=== PATIENT | male | born 1960 | race Caucasian/White ===

== ENCOUNTER → 2017-01-04 11:25 | Outpatient (CLI) | payer OTHER | END | disposition home or self-care (01) | LOC: D.CT 11:25 | DX: R10.9 Unspecified abdominal pain (principal) ==

== ENCOUNTER 2018-11-28 06:32 | Day surgery (SDC) | payer OTHER ==
[~2018-11-28] VITALS: Ht 175.3 cm; Wt 99.8 kg
[~2018-11-28 06:32] MED LIST: ARMOUR THYROID240 MG PO; COZAAR100 MG PO
[2018-11-28] MEDS ORDERED: PEPCID AC20 MG PO (08:09)
--- NOTE | 2018-11-28 08:09 | NUR ---
0897 DR. CARVER IS REQUESTING IV PEPCID DUE TO SEVERE GERD. 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
[2018-11-28 08:25] VITALS: BP 121/70; Ht 175.3 cm; Wt 99.8 kg
--- NOTE | 2018-11-28 09:31 | NUR ---
PATIENT LATE TO HOLDING FROM OUTPATIENT DUE TO STAFFING ISSUES IN OUTPATIENTS, 49 MINUTES DELAY, MARISABEL.
--- NOTE | 2018-11-28 13:29 | NUR ---
1318 IV DC'D. PRESSURE HELD TO STOP BLEEDING. BANDAID APPLIED.
--- NOTE | 2018-11-29 17:25 | OP ---
PATIENT NAME: KALPESH CARVER MEDICAL RECORD: [id number] :62 LOCATION:[facility] ADMISSION DATE: SURGEON: SRIKANTH TAFOYA MD DATE OF OPERATION: 11/28/2018 PREOPERATIVE DIAGNOSES: 1. Anal fissure. 2. Intractably symptomatic external hemorrhoids. POSTOPERATIVE DIAGNOSES: 1. Anal fissure. 2. Intractably symptomatic external hemorrhoids. 3. A mild degree of anal stenosis. PROCEDURE: 1. Anal evaluation under anesthesia with a single column hemorrhoidectomy at 7 o'clock. 2. External hemorrhoidectomy at 11 o'clock. 3. Lateral internal sphincterotomy. SURGEON: Srikanth Tafoya MD MATURITY CHECKER: None. BLOOD LOSS: 50 cc. ANESTHESIA: General. COMPLICATIONS: None. The risks, possible complications and alternatives to the procedure were explained to the patient. He elects to proceed. The patient was conveyed to the operating room electively on 10/31/2018. General anesthesia was induced by the anesthesia staff. The patient was placed in the lithotomy position. The buttocks were taped laterally. The anus and perineum were sterilely prepped and draped. I dilated the anus laterally to 2 fingers. There was some degree of anal stenosis likely from his prior operation. U-shaped anal retractors were placed. The largest hemorrhoid was at 7 o'clock. Hemostats were placed on a hemorrhoid. Utilizing the Harmonic scalpel, I excised the hemorrhoid with care paid not injure the underlying sphincteric muscles. Submucosal flaps were created sharply. I was able to elevate the superior flap and was able to visualize the internal and external sphincters. I performed about 3/4 lateral internal sphincterotomy at the 9 o'clock position. The hemorrhoidectomy defect was then closed with a running locking 3-0 Vicryl suture for the anal mucosa and then I ran this out on to the anoderm in a running intracuticular fashion. I reinforced the suture line with multiple interrupted horizontal mattress 3-0 Vicryl sutures for the anoderm as well as interrupted 3-0 Vicryls in a horizontal mattress fashion for the anal suture line. I identified an enlarged external hemorrhoid at the 11 o'clock position. This was grasped with hemostat and was excised utilizing the Harmonic scalpel. The defect was closed with interrupted intracuticular 3-0 Vicryls as well as multiple interrupted 3-0 Vicryl Rapide sutures in a horizontal mattress fashion. OPERATIVE REPORT [id number] KALPESH CARVER I then examined the anus again with the U-shaped anal retractors. I was satisfied with the operative result. Gelfoam was applied within the anus and lower rectum. A combination of steroid and Marcaine were used to infiltrate the perianal tissues and then a topical anesthetic cream was applied to the external hemorrhoids. The patient was then extubated and conveyed to post-anesthesia care unit where he was in stable condition. He will be dismissed home on [place] as well as Valium and Colace. TRANSINT:[id number] Voice Confirmation ID: [id number] DOCUMENT ID: [id number] SRIKANTH TAFOYA MD at 1725 CC: [id number] DICTATION DATE: 11/28/18 1032 DIRECTOR ADULT: 11/28/18 1046 [facility] 11/28/18 [id number] [place] [address]
== END 2018-11-28 13:25 | disposition home or self-care (01) ==
LOC: D.OPS 06:32
PROVIDERS: ATTEND Surgery
DX: K60.2 Anal fissure, unspecified (principal); K64.4 Residual hemorrhoidal skin tags; K62.4 Stenosis of anus and rectum; Z01.812 Encounter for preprocedural laboratory examination

== ENCOUNTER → 2020-11-20 13:31 | Outpatient (CLI) | payer OTHER ==
[2018-11-28 08:25] VITALS: BMI 32.5
[~2020-11-20 13:31] MED LIST changes: +PEPCID AC20 MG PO
== END | disposition home or self-care (01) ==
LOC: D.RT 11:00
PROVIDERS: ATTEND Internal Medicine Pulmonary Disease
DX: R06.09 Other forms of dyspnea (principal); Z20.822 Contact with and (suspected) exposure to COVID-19

== ENCOUNTER → 2020-11-29 09:36 | Outpatient (CLI) | payer OTHER ==
[2018-11-28 08:25] VITALS: BMI 32.5
[2020-11-29 10:02] LABS: CREATININE - SERUM 1.2 mg/dL (0.6-1.3)
== END | disposition home or self-care (01) ==
LOC: D.LAB 08:15 → D.CT 09:30 → D.LAB 09:36
PROVIDERS: ATTEND Internal Medicine Pulmonary Disease
DX: I25.10 Atherosclerotic heart disease of native coronary artery without angina pectoris (principal)